=== PATIENT | female | born 1960 | race Caucasian/White ===

== ENCOUNTER 2019-11-27 11:03 | Emergency (ER) | payer MEDICAID, OTHER ==
[~2019-11-27] VITALS: Ht 160 cm; Wt 83.9 kg
--- NOTE | 2019-11-27 11:09 | NUR ---
Patient to ER bed 04 to gown for evaluation. Side rails up.
[2019-11-27 11:13] VITALS: BP_SYST 133
[2019-11-27] MEDS ORDERED: KETOROLAC TROMETHAMINE 60 MG/2 ML VIAL IM ONE (11:15)
--- NOTE | 2019-11-27 11:27 | NUR ---
PATIENT PRESENTS TO THE ER WITH HX OR PAIN TO LEFT LUMBAR AREA WITH ABDOMINAL DISTENTION FOR TWO DAYS; NO TRAUMA, NO OTHER REMARKABLE S/S; PATIENT TO ER #4 AT 1110 AND ERMD EVALUATION AT 1130
[2019-11-27 11:28] LABS: BILIRUBIN,URINE NEGATIVE (NEGATIVE); BLOOD, URINE NEGATIVE (NEGATIVE); CLARITY/URINE CLEAR (CLEAR); COLOR,URINE YELLOW (YELLOW); GLUCOSE,URINE NEGATIVE (NEGATIVE); KETONES,URINE NEGATIVE (NEGATIVE); LEUKOCYTE ESTERASE ,URINE 1+ (NEGATIVE); NITRITE, URINE NEGATIVE (NEGATIVE); PROTEIN URINE NEGATIVE (NEGATIVE); UROBILINOGEN,URINE 0.2 (0.2-1.0)
[2019-11-27 11:33] LABS: WBC,URINE 0-3 /HPF (0-3)
[2019-11-27 11:34] LABS: BACTERIA,URINE FEW /HPF (None Seen)
[2019-11-27 12:05] VITALS: BP_SYST 125
--- NOTE | 2019-11-27 12:07 | NUR ---
REASSESSMENT BY ERMD; ACI GIVEN PER ERMD AND PATIENT DISCHARGED AMBULATORY; IMPROVED
== END 2019-11-27 12:07 | disposition home or self-care (01) ==
LOC: SED 11:03
DX: N12 Tubulo-interstitial nephritis, not specified as acute or chronic (principal); Z90.49 Acquired absence of other specified parts of digestive tract; Z88.0 Allergy status to penicillin
CPT/HCPCS: 81000; 87086; 96372; 99283; J1885